=== PATIENT | female | born 1980 | race Two or more races ===

== ENCOUNTER 2019-02-09 04:08 | Emergency (ER) | payer MEDICAID ==
[~2019-02-09] VITALS: Ht 149.9 cm; Wt 75.7 kg
[2019-02-09 04:22] VITALS: BP 120/77
== END 2019-02-09 05:06 | disposition home or self-care (01) ==
LOC: ER 04:11
DX: T16.2XXA Foreign body in left ear, initial encounter (principal); W45.8XXA Other foreign body or object entering through skin, initial encounter; Y93.89 Activity, other specified; Y92.89 Other specified places as the place of occurrence of the external cause; Y99.8 Other external cause status

== ENCOUNTER 2019-07-01 05:06 | Emergency (ER) | payer MEDICAID ==
[~2019-07-01] VITALS: Ht 152.4 cm; Wt 73.9 kg
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
--- NOTE | 2019-07-01 05:27 | NUR ---
URINE COLLECTED AND SENT TO LAB.
[2019-07-01] MEDS ORDERED: oxyCODONE/APAP (5/325 MG) 1 UDTAB TABLET PO ONE (05:30)
[2019-07-01 05:32] LABS: APPEARANCE,URINE Clear (CLEAR); BILIRUBIN,URINE Negative (NEGATIVE); BLOOD, URINE Moderate Ery/uL (NEGATIVE); COLOR,URINE Yellow (YELLOW); KETONES,URINE Negative (NEGATIVE); LEUKOCYTE ESTERASE ,URINE Negative (NEGATIVE); NITRITE, URINE Negative (NEGATIVE); PH,URINE 6.5 (5.0-8.0); PROTEIN,URINE 30 mg/dl (NEGATIVE); UGLUCOSE Negative (NEGATIVE); UROBILINOGEN,URINE 0.2 EU/dL (0.2)
[2019-07-01] MEDS ORDERED: oxyCODONE/APAP (5/325 MG) 1 UDTAB TABLET ONE (05:32)
--- NOTE | 2019-07-01 05:34 | NUR ---
PT BROUGHT TO CT.
--- NOTE | 2019-07-01 05:39 | NUR ---
PT BROUGHT BACK FROM CT.
--- NOTE | 2019-07-01 05:56 | NUR ---
POLICE DETECTIVE AT BEDSIDE FOR BLOOD COLLECTION.
[2019-07-01 06:01] LABS: BASOPHILS # (AUTO) 0.1 /CMM (0.0-0.2); BASOPHILS % (AUTO) 0.9 % (0.0-2.0); EOSINOPHILS % (AUTO) 0.2 % (0.0-6.0); HEMATOCRIT 41 % (33-45); HEMOGLOBIN 13.9 g/dL (11.5-14.8); LYMPHOCYTES # (AUTO) 1.5 /CMM (0.8-4.8); MEAN CORPUSCULAR HGB CONC 34 g/dl (31.0-36.0); MEAN CORPUSCULAR VOLUME 91 fL (82-100); MONOCYTES # (AUTO) 0.6 /CMM (0.1-1.30); MONOCYTES % (AUTO) 4.9 % (2.0-12.0); NEUTROPHILS # (AUTO) 10.6 /CMM (1.8-8.9); PLATELET COUNT (AUTO) 249 /CMM (150-450); RED BLOOD CELL COUNT(AUTO) 4.55 MIL/uL (4.0-5.2); WHITE BLOOD COUNT (AUTO) 12.9 K/uL (4.3-11.0)
[2019-07-01 06:07] LABS: CALCIUM, SERUM 8.8 mg/dL (8.5-10.1); CREATININE 0.7 mg/dL (0.6-1.3); POTASSIUM 3.5 mmol/L (3.5-5.1)
[2019-07-01 06:17] LABS: BACTERIA,URINE Few /HPF (None Seen); MUCUS,URINE Few /LPF (None Seen); SQUAMOUS EPITHELIAL CELL,UR Few /HPF (None Seen)
[2019-07-01] MEDS ORDERED: IOHEXOL-300 100 ML VIAL IV ONE (06:21)
--- NOTE | 2019-07-01 06:21 | NUR ---
PT TRANSPORTED TO RADIOLOGY FOR CT ABD/PELVIS WITH CONTRAST.
[2019-07-01 07:17] VITALS: BP 126/82
--- NOTE | 2019-07-01 07:17 | NUR ---
Patient discharged to home in stable condition. Written and verbal after care instructions given. Patient verbalizes understanding of instruction. IV removed. Catheter intact and site benign. Pressure and 4x4 applied to site. No bleeding noted. PT ambulatory with a steady gait.
== END 2019-07-01 07:18 | disposition home or self-care (01) ==
LOC: ER 05:07
DX: S00.12XA Contusion of left eyelid and periocular area, initial encounter (principal); S30.1XXA Contusion of abdominal wall, initial encounter; Y04.0XXA Assault by unarmed brawl or fight, initial encounter; Y93.89 Activity, other specified; Y92.89 Other specified places as the place of occurrence of the external cause; Y99.8 Other external cause status
CPT/HCPCS: 36415; 70486; 74177; 80048; 81001; 84703; 85025; 99284; Q9967; 81000-TC